=== PATIENT | female | born 1990 | race Caucasian/White ===

== ENCOUNTER 2022-05-25 01:09 | Emergency (ER) | payer OTHER ==
[2022-05-25] MEDS ORDERED: Ketorolac Tromethamine 30 MG/ML VIAL ONE (01:55)
[2022-05-25] MEDS ORDERED: Diazepam 10 MG/2 ML SYRINGE ONE (01:56)
[2022-05-25 02:17] LABS: BHCG - Serum Negative (NEGATIVE); Pregs Control Background? CLEAR/WHITE (CLR/WHITE); Pregs Control Bar Appear? YES (CONTROL BAR)
[2022-05-25] MEDS ORDERED: Acetaminophen 500 MG TAB ONE (02:53)
[2022-05-25 04:05] LABS: Bilirubin Negative (Negative); Blood, Urine Trace (Negative); Clarity Clear (Clear); Glucose, Urine (Dipstick) Normal (Negative); Ketone, Urine Negative (Negative); Leukocyte 250 Leu/uL (Negative); Nitrite Negative (Negative); Protein, Urine (Dipstick) Negative (Neg-Trace); Urobilinogen Normal mg/dL (Less than 2); pH, Urine 5.5 (5.0-9.0)
[2022-05-25 04:06] LABS: Specific Gravity, Urine 1.051 (1.002-1.036)
[2022-05-25 04:14] LABS: Bacteria/HPF Rare-Few HPF (None Seen)
[2022-05-25 04:15] LABS: RBC/HPF 0-3 HPF (0-3); Squamous Epithelial 0-3 HPF (0-3)
[2022-05-25] MEDS ORDERED: Iopamidol-370 76% 500 ML 1 ML ONE (15:09)
== END 2022-05-25 05:11 | disposition home or self-care (01) ==
LOC: ERS 01:09
DX: M54.50 Low back pain, unspecified (principal)
CPT/HCPCS: 74177; 81003; 81015; 84703; 96361; 96374; 96375; J1885; J3360; Q9967